=== PATIENT | female | born 1955 | race Caucasian/White ===

== ENCOUNTER 2018-06-21 12:44 | Emergency (ER) | payer MEDICAID ==
[2018-06-21 12:54] VITALS: BP 104/47
--- NOTE | 2018-06-21 13:37 | EDPHY ---
H & P Time Seen by Provider: 06/21/18 13:18 HPI/ROS: CLINICAL IMPRESSION: Left humeral head fracture ASSESSMENT/PLAN: 63-year-old female presents to the emergency department with left shoulder pain after ground level fall on the ice today. No open injuries or obvious shoulder dislocation. Distal neurovascular exam intact. X-rays suggestive of closed humeral head fracture. Patient was placed in a sling for comfort. Rice treatment discussed. Orthopedic referral given, warning signs return to ED sooner alignment discharge. DIFFERENTIAL DX: Differential includes but not limited to humerus fracture, shoulder dislocation , clavicle fracture, ligamentous injury, rotator cuff instability, contusion ED PROCEDURES: Procedure: Splint placement. A left arm sling splint was applied to left arm by technical support associate, supervised by myself. After application of the splint I returned and re-examined the patient. The splint was adequately immobilizing the joint and distal to the splint the patient's circulation and sensation was intact. ED COURSE: CHIEF COMPLAINT: Left shoulder pain HPI: 63-year-old [id number] female presents to the emergency department with left shoulder pain after a ground level fall this morning. Patient states she slipped and fell directly onto the left shoulder. Her arm was against her body. No complaints of elbow or wrist pain. No prior Ortho injury or surgery to the left shoulder. No chest wall pain, shortness of breath. No reported numbness or loss of sensation to hand fingers or wrist. PAST MEDICAL HISTORY: Fibromyalgia, migraines Pertinent Past Surgical History: Prior orthopedic surgery Social History: Nonsmoker REVIEW OF SYSTEMS: All other systems negative Constitutional: No fever, no chills Musculoskeletal: No deformity, + joint pain Skin: No rashes, color change or open wounds. Neurological: No sensory loss or weakness. PHYSICAL EXAM: General Appearance: Alert, oriented, appropriate for age, cooperative, NAD, well hydrated, non-toxic appearing, VSS, no hypoxia. Neurological: Alert and oriented x 3, normal sensation and strength of extremities Skin: Warm, dry, no rashes, no nodules on palpation. Musculoskeletal: Reproducible pain to palpation of the proximal left shoulder. No dislocation. Neurovascular exam intact. Normal flexion of the elbow with no evidence of biceps tendon rupture. No wrist pain. Pain with attempted abduction of the arm at the shoulder. No scapular or clavicle pain. MEDICAL DECISION MAKING: Patient was seen independently. Secondary supervising physician at time of evaluation was Dr Lopez . Diagnosis: Left humeral head fracture. New, requires workup Summary: See assessment and plan for summary of ED visit Independent visualization of images, tracing, or specimens yes. Patient Progress: Stable . Smoking Status: Never smoked Constitutional: Initial Vital Signs Temperature (C) 36.5 C 06/21/18 12:52 Heart Rate 74 06/21/18 12:52 Respiratory Rate 16 06/21/18 12:52 Blood Pressure 104/47 L 06/21/18 12:52 O2 Sat (%) 97 06/21/18 12:52 O2 Delivery Mode Room Air Allergies/Adverse Reactions: No Known Allergies Allergy (Verified 06/21/18 12:51) Home Medications: Medication Instructions Recorded Gabapentin 03/12/15 Lexapro 06/21/18 MDM/Departure - MDM Imaging Results: Imaging Impressions Shoulder X-Ray 06/21/18 13:01 Impression: Mildly displaced left greater tuberosity fracture. Imaging: I viewed and interpreted images myself - Depart Disposition: Home, Routine, Self-Care Clinical Impression: Fracture of humeral head, left, closed Qualifiers: Encounter type: initial encounter Qualified Code(s): S42.292A - Other displaced fracture of upper end of left humerus, initial encounter for closed fracture Condition: Good Instructions: Proximal Humerus Fracture (ED) Additional Instructions: DISCHARGE INSTRUCTIONS FROM YOUR DOCTOR Thank you for visiting our emergency department today. Please keep in mind that discharge from the emergency department does not mean that there is nothing wrong - it simply means that we have not identified an emergency condition that requires further evaluation or treatment in the hospital. You should always plan to follow up with primary care for re-evaluation of your condition in the next 2-3 days. If you have been referred to a specialist, please call as soon as possible (today or tomorrow) to schedule your follow up appointment at the appropriate time. X-RAY SHOW A SMALL FRACTURE TO THE HUMERAL HEAD OF THE LEFT ARM. WE PLACED TO IN A SLING AND GAVE YOU A REFERRAL TO ORTHOPEDICS. PLEASE CALL THEM FOR A FOLLOW-UP APPOINTMENT. KEEP HER ARM IN THE SLING UNTIL YOU SEE ORTHOPEDICS. REST AND ELEVATE THE AFFECTED EXTREMITY MUCH POSSIBLE. ICE THE AFFECTED AREAS 20 MIN ON, 20 MIN OFF FOR THE NEXT SEVERAL DAYS. PLEASE USE TYLENOL OR IBUPROFEN OVER THE COUNTER IN APPROPRIATE DOSES OUTLINED ON YOUR DISCHARGE PAPERS. TAKE IBUPROFEN WITH FOOD AND A LARGE GLASS OF WATER. DO NOT TAKE IBUPROFEN IF YOU ARE ON A BLOOD THINNING MEDICATION SUCH COUMADIN, XARELTO, WARFARIN, LOVENOX OR PLAVIX. RETURN TO THE EMERGENCY DEPARTMENT SOONER FOR WORSENING PAIN, NUMBNESS OR LOSS OF SENSATION TO ARM HAND OR FINGERS, CHEST PAIN SHORTNESS OF BREATH, SIGNIFICANT, SEVERE SWELLING OF THE ARM, FEVERS OR ANY OTHER CONCERN People present with illnesses and injuries in different ways, and it is always possible that we have missed something. You may always return for re-evaluation if symptoms worsen or if they are not improving or if you develop new/different symptoms. Again, thank you for choosing our emergency department. We hope that you feel better. Referrals: NONE *PRIMARY CARE P,. [Primary Care Provider] - As per Instructions Ced Ram MD [Medical Doctor] - As per Instructions
== END 2018-06-21 14:06 | disposition home or self-care (01) ==
DX: S42.292A Other displaced fracture of upper end of left humerus, initial encounter for closed fracture (principal); W00.9XXA Unspecified fall due to ice and snow, initial encounter; Y92.9 Unspecified place or not applicable; Y93.9 Activity, unspecified; Y99.9 Unspecified external cause status
CPT/HCPCS: A4565

== ENCOUNTER → 2018-09-26 | Outpatient (CLI) | payer MEDICAID | LOC: BMCIMAGING 12:30 | PROVIDERS: ATTEND Family Medicine | DX: Z12.31 Encounter for screening mammogram for malignant neoplasm of breast (principal) ==